=== PATIENT | female | born 1950 | race Caucasian/White ===

== ENCOUNTER 2018-01-11 13:40 | Outpatient (REF) | payer MEDICARE, SELFPAY ==
[2018-01-13 11:39] LABS: Hepatitis C Ab w Rflx HCV PCR Negative (NEGAT)
== END 2018-01-11 14:00 ==
LOC: NCHCN 13:40
PROVIDERS: PCP Nurse Practitioner Family; Visit Provider Nurse Practitioner Family
DX: E78.5 Hyperlipidemia, unspecified (principal); M85.88 Other specified disorders of bone density and structure, other site; Z11.59 Encounter for screening for other viral diseases; J98.4 Other disorders of lung
CPT/HCPCS: 86803

== ENCOUNTER 2018-01-21 00:28 | Outpatient (CLI) | payer MEDICARE, BC, SELFPAY ==
--- NOTE | 2018-01-21 09:40 | DI.MAMMO_ITS ---
SYMPTOM/DIAGNOSIS: SCREENING, FAMILY H/O BREAST CA, Z80.3 MAMMOGRAMS: Mammograms were interpreted according to the usual protocol including computer analysis with CAD system, tomosynthesis and C view imaging. The breasts are of moderate density with fairly symmetrical distribution of fibroglandular tissue. No dominant mass or clumped microcalcification is identified in either breast. The current examination is compared with previous examinations including 12/2016 and there has been no gross interval change in appearance in comparison with the previous studies. CONCLUSION: No specific evidence of malignancy at this time. Routine screening examinations are suggested at yearly intervals due to the family history of breast carcinoma. Category 1, breast density, Category B. MQSA ASSESSMENT OF FINDINGS: Negative. Category 1. Patient will receive a letter notifying them of these results. BI-RADS category B. There are scattered areas of fibroglandular density.
== END 2018-01-21 00:48 ==
PROVIDERS: PCP Nurse Practitioner Family; Visit Provider Nurse Practitioner Family
DX: Z12.31 Encounter for screening mammogram for malignant neoplasm of breast (principal); Z80.3 Family history of malignant neoplasm of breast
CPT/HCPCS: 77063; 77067

== ENCOUNTER 2018-08-19 11:57 | Outpatient (REF) | payer MEDICARE, BC, SELFPAY ==
[2018-08-20 11:45] LABS: Campylobacter PCR SEE COMMENTS; Salmonella PCR SEE COMMENTS; Shiga Toxin PCR SEE COMMENTS; Shigella/Enteroinvasive Ecoli SEE COMMENTS
== END 2018-08-19 12:17 ==
LOC: NCHCN 11:57
PROVIDERS: PCP Nurse Practitioner Family; Visit Provider Nurse Practitioner Family
DX: R19.7 Diarrhea, unspecified (principal); E78.5 Hyperlipidemia, unspecified; K44.9 Diaphragmatic hernia without obstruction or gangrene; J98.4 Other disorders of lung; K30 Functional dyspepsia
CPT/HCPCS: 87505; 87177; 87230; 87324

== ENCOUNTER 2019-09-15 03:11 | Outpatient (CLI) | payer MEDICARE, BC, SELFPAY ==
--- NOTE | 2019-09-15 13:33 | DI.MAMMO_ITS ---
EXAM: MAMMO SCREENING CLINICAL HISTORY: SCREENING, Z12.31 TECHNIQUE: Mammograms were interpreted according to the usual protocol including computer analysis w [employer] CAD system, tomosynthesis and C-view imaging. COMPARISON: 2010 through 2017 FINDINGS: The breasts are composed of scattered fibroglandular densities, Breast Density category B. No suspicious masses or suspicious microcalcifications are seen. No skin thickening or abnormal axillary lymph nodes are seen. There has been no significant change from prior exams. IMPRESSION: BI-RADS Category 1 - Negative Yearly screening mammography is recommended. Breast Density Category B, scattered fibroglandular densities.
--- NOTE | 2019-09-15 13:50 | DI.DEXA_ITS ---
EXAM: XR DEXA BONE DENSITY W/WO RAVIN CLINICAL HISTORY: OSTEOPENIA WITH HIGH FRACTURE RISK, M85.99 TECHNIQUE: Holoroomlinx Horizon C densitometer. COMPARISON: DX DEXA BONE DENSITY WITH RAVIN from 12/04/2015 FINDINGS: Lateral view of the thoracic and lumbar spine shows no evidence of compression fractures. Scoliosis is noted. The bone mineral density measurements of lumbar spine correspond to a total T-score of -2.4, in the o steopenic range. There has been 8.7 percent decrease in spine bone density when compared with 2016. The bone mineral density measurements of the left hip correspond to a total T-score -0.4 and a femora l neck T-score of -0.2, in the normal range. This is not significantly changed. The left forearm bone mineral density measurements correspond to a T-score of the distal 3rd of -1.7. There has been a 3.7 percent decrease in forearm bone density when compared with 2016. IMPRESSION: Normal bone mineral density of the left hip. Osteopenia of the lumbar spine and forearm.
== END 2019-09-15 03:31 ==
PROVIDERS: PCP Nurse Practitioner Family; Visit Provider Nurse Practitioner Family
DX: Z12.31 Encounter for screening mammogram for malignant neoplasm of breast (principal); M85.88 Other specified disorders of bone density and structure, other site
CPT/HCPCS: 77063; 77067; 77080

== ENCOUNTER → 2019-09-23 07:35 | Outpatient (BNVA) | payer MEDICARE, BC, SELFPAY | PROVIDERS: PCP Nurse Practitioner Family; Referring Provider Nurse Practitioner Family; Visit Provider Surgery | DX: Z12.11 Encounter for screening for malignant neoplasm of colon (principal); Z12.12 Encounter for screening for malignant neoplasm of rectum ==

== ENCOUNTER 2019-09-27 13:00 | Outpatient (REF) | payer MEDICARE, BC, SELFPAY ==
[2019-09-27 21:58] LABS: ALT 23 U/L (14-59); AST 12 U/L (15-37); Albumin 4.2 g/dL (3.4-5.0); Alkaline Phosphatase 82 U/L (46-116); BUN 21 mg/dL (7-18); Bilirubin, Total 0.5 mg/dL (0.2-1.0); CREATININE 0.79 mg/dL (0.55-1.02); Calcium 10.1 mg/dL (8.5-10.1); Calculated LDL 190 mg/dL (<100); Chloride 101 mmol/L (98-107); Cholesterol 297 mg/dL (<200); Glucose 77 mg/dL (74-106); HDL Cholesterol 59 mg/dL (40-60); Magnesium 2.2 mg/dL (1.8-2.4); Potassium 4.6 mmol/L (3.5-5.1); Sodium 139 mmol/L (136-145); Total Protein 7.8 g/dL (6.4-8.2); Triglyceride 242 mg/dL (<150); Vitamin B12 341 pg/mL (193-986)
[2019-09-29 04:29] LABS: Vitamin D 25 Total 73.8 ng/ml (30-100)
== END 2019-09-27 13:20 ==
LOC: NCHCN 13:00
PROVIDERS: PCP Nurse Practitioner Family; Visit Provider Nurse Practitioner Family
DX: E78.5 Hyperlipidemia, unspecified (principal); M85.80 Other specified disorders of bone density and structure, unspecified site; N39.3 Stress incontinence (female) (male); K30 Functional dyspepsia; K44.9 Diaphragmatic hernia without obstruction or gangrene; M25.552 Pain in left hip; M54.5 Low back pain
CPT/HCPCS: 80053; 80061; 82306; 82607; 83735

== ENCOUNTER 2019-10-03 09:20 | Day surgery (SDC) | payer MEDICARE, BC, SELFPAY ==
--- NOTE | 2019-10-03 06:49 | COLE_ITS ---
Date of service: 10/03/19 Time of Service: 10:10 Colonoscopy Report Date of procedure: 10/03/19 Pre-op diagnosis general: Colon Cancer Screening Post-op diagnosis procedure note: other (Rectal polyp and costello-diverticulosis) Procedure: Colonoscopy with polypectomy Surgeon: Karina Joshi Anesthesia proc note operative: other (General/ ASA2 /Nika Addison, YON) Estimated blood loss (mL): 2 Pathology: other (Rectal polyp) Complications: None Disposition: same day Indications: 68 year old female here for a screening colonoscopy. She is s/p sigmoid colectomy for diverticulitis and colovesicular fistula in 2018. She was diagnosed with a HIatal Hernia and GERD last year and placed on Omeprazole. Cardiac workup was negative Recommend Colonoscopy under sedation Risks, benefits and complications have been reviewed. Complications include but are not limited to bleeding, pain, perforation, missed small lesion/polyp, sore throat, aspiration and adverse reaction to the medications. Questions were entertained and answered to their satisfaction and they wished to proceed. No guarantees were given or implied Prep: Miralax/Dulcolax Procedure Start Time: 10:10 Procedure End Time: 10:23 Retraction Time: 10 minutes Findings: Costello-diverticulosis wide and open anastamosis One rectal polyp Procedure Description: After informed consent was obtained the patient was taken to the procedure room and placed in a left decubitous position. Monitors were applied and a time out was done. The patients name, date of , procedure, allergies to medications and metal in their body was reviewed. The patient was then sedated. Once sedated and comfortable a rectal exam was done. External exam was normal. Internal exam revealed a normal sphincter tone and no palpable masses. The scope was then introduced and retro-flexed. No internal hemorrhoids were identified. There was a internal skin tag. No polyp or masses were identified on retro-flexion. The scope was then advanced to the cecum without difficulty. The ileocecal valve and appendiceal orifice were identified. The prep was good. The scope was then slowly retracted over 10 minutes back into the rectum. Polyps were removed with cold forceps in the rectum. There was moderate costello- diverticulosis. The scope was removed and the patient was woken up and taken back to Same day surgery in stable condition. The patient tolerated the procedure well and there were no immediate complications. Follow up: The patient should follow up in 5 years unless they develop changes in bowel habits or other new gastrointestinal complaints.
--- NOTE | 2019-10-03 06:50 | PDOC.DSDIS_ITS ---
Discharge Plan Disposition Patient Disposition: HOME Condition: Good Discharge Details Reason For Visit: Colon cancer screening Attending Provider: Karina Joshi Primary Care Provider: Alexandra Queen Home Meds and New Rx's Prescriptions: Continued turmeric 400 mg capsule 400 mg PO DAILY RF: 0 cholecalciferol (vitamin D3) 2,000 UNIT tablet 2,000 unit PO DAILY RF: 0 Probiotic 1 EACH capsule 1 ea PO DAILY RF: 0 omeprazole 20 mg capsule,delayed release(DR/EC) 20 mg PO DAILY RF: 0 acetaminophen [Tylenol] 325 MG tablet 650 mg PO Q6H PRN PRNRF: 0 ibuprofen 200 MG tablet 600 mg PO Q6H PRN PRN (Reason: Abdominal Pain) Qty: 30 RF: 0 Discontinued bisacodyl [Dulcolax (bisacodyl)] 5 mg tablet,delayed release (DR/EC) 5 mg PO ONCE Qty: 4 RF: 0 polyethylene glycol 3350 17 gram powder in packet 255 g PO DAILY Qty: 15 RF: 0 Discharge Instructions Instructions: Diverticulosis (DC) Additional Instructions: Findings: Diverticulosis Rectal polyp Follow up: 5 years Please call if you develop: fevers >101.5 Nausea or Vomiting Abdominal pain that is not transient DAY SURGERY UNIT POST ENDOSCOPY INSTRUCTIONS 1. Because there will be medication in your system for the next 24 hours, you may feel a little sleepy. Your coordination will be affected. Therefore: a. Do not drive or operate dangerous equipment for 24 hours. b. Do not drink alcohol beverages for 24 hours (not even beer). c. Plan to go home and rest for the day. 2. Generally there are no restrictions on your activity after a day or so has gone by, but you may feel a bit fatigued for a few days. 3 After you arrive home you may have a light meal and return to a normal diet as you can tolerate it without feeling sick to your stomach. 4. After surgery, you may feel pain or discomfort. This should be only t ransient, but if it persists please contact your doctor. 5. If there are any questions regarding the findings of your procedure, please feel free to contact your doctor. 6. If you are unable to contact your doctor with a problem, contact the hospital at [phone]. 7. Continue all your regular medications unless directed otherwise. I understand the above instructions and have no questions. Signature of Patient or Responsible Adult Escort Date/Time Name of Responsible Adult Escort Signature of Nurse Date/Time Activity:: Activity as Tolerated Diet:: High Fiber diet Discharge Orders Discharge Orders: Discharge Order (Routine); Ordered 10/03/19 Ordered By: Karina Joshi
[2019-10-03 09:37] VITALS: BP 129/88; PULSE 62; RESP 18; TEMP 36.1; O2SAT 97
[2019-10-03] MEDS: Lactated Ringers 1,000 ML 80 ML IV (09:45)
--- NOTE | 2019-10-03 10:20 | BOWEL_PTH ---
PATIENT: LUCERO CANO LOC: [facility] U#:[id number] AGE/SX: 68/F ROOM: RE10/03/[address]: Karina Joshi MD : [id number] BED: DIS: 10/03/2019 SPEC #: [id number] RECD: 10/03/19 12:10 STATUS: CEDRIC REQ #: [id number] MARY: 10/03/19 10:[address]: Karina Joshi DEPT: Surgical Specimen RECD BY: Molly Linda ENTERED: 10/03/19 12:11 SP TYPE: Bowel OTHR DR: Alexandra Queen Tissues: 1 - BIOPSY BOWEL Procedures: GROSS AND MICRO LEVEL 4 Comments: [id number]
[2019-10-03 10:52] VITALS: BP 110/76; PULSE 62; RESP 17; TEMP 36; O2SAT 96
== END 2019-10-03 11:20 | disposition home or self-care (01) ==
LOC: SUR 09:20
PROVIDERS: PCP Nurse Practitioner Family; Visit Provider Surgery
PROC: 0DJD8ZZ Inspection of Lower Intestinal Tract, Via Natural or Artificial Opening Endoscopic (ICD-10-PCS; CPT 45378; principal; 2019-10-03 10:30)
DX: Z12.11 Encounter for screening for malignant neoplasm of colon (principal); Z90.49 Acquired absence of other specified parts of digestive tract; Z87.19 Personal history of other diseases of the digestive system; K62.1 Rectal polyp
CPT/HCPCS: 45380; 88305

== ENCOUNTER → 2019-10-21 11:01 | Outpatient (BNVA) | payer MEDICARE, BC, SELFPAY | PROVIDERS: PCP Nurse Practitioner Family; Referring Provider Nurse Practitioner Family; Visit Provider Surgery | DX: K43.2 Incisional hernia without obstruction or gangrene (principal); Z01.818 Encounter for other preprocedural examination | CPT/HCPCS: 99213 ==

== ENCOUNTER 2019-10-22 07:28 | Outpatient (CLI) | payer MEDICARE, BC, SELFPAY ==
[2019-10-25 23:46] LABS: COVID-19 RT-PCR UVMMC Result Negative (Negative)
== END 2019-10-22 07:48 ==
PROVIDERS: PCP Nurse Practitioner Family; Visit Provider Surgery
DX: Z01.818 Encounter for other preprocedural examination (principal)
CPT/HCPCS: U0003

== ENCOUNTER 2019-10-26 06:20 | Day surgery (SDC) | payer MEDICARE, BC, SELFPAY ==
[2019-10-26] VITALS (9 sets, daily range): BP systolic 113–143; BP diastolic 70–87; PULSE 59–70; RESP 15–26; TEMP 36.3–36.6; O2SAT 94–99
--- NOTE | 2019-10-26 06:23 | W.PM.OP ---
Date of service: 10/26/19 Time of Service: 10:15 Operative Note Operative Note DATE OF PROCEDURE: 10/26/19 PRE-OP DIAGNOSIS: Incisional hernia POST-OP DIAGNOSIS: same PROCEDURE: Laparoscopic/open incisional hernia repair with mesh SURGEON: Karina Joshi SPRING COILING MACHINE SETTER: Deborah Maravilla ANESTHESIA: GETA and regional (Exparel/bupivocaine block) PATHOLOGY: none sent COMPLICATIONS: None Patient was transported to: PACU Patient's condition: stable Implants: Ventralight ST Mesh with ECHO positioning system REF [id number] EXP 2021-03-26 Indications: [place] is a pleasant 69-year-old female who unfortunately developed a small incisional hernia around the umbilicus. I cannot feel any other hernias along her midline incision. My recommendation is to try to fix this laparoscopically just so I can make sure that there are not other small hernias along the midline that I just cannot feel. I discussed with her doing a laparoscopic hernia repair possible open or possibly a combination of the 2. This will depend on how many adhesions she has. Findings: Omentum and large bowel was adhered along the entire midline incision Procedure Description: After informed consent was obtained the patient was taken to the operating room placed in the supine position, SCDs were applied, as well as monitors. A timeout was done. The patient was then placed under general anesthesia and intubated without any difficulty. Anesthesia did an US guided Bilateral Rectus nerve bloc. Please see their separate dictation. Next a Gonzalez catheter was placed in a standard surgical fashion. At this point the abdomen was prepped and draped in a sterile surgical fashion with chlorhexidine. A second timeout was done and the patient's name, date of , operation to be performed, DVT prophylaxisand antibiotic given were reviewed. Fire risk was assessed. 1% Percent lidocaine was injected into the dermis in the left upper quadrant. A small 5 mm incision was made with an 11 blade. The skin was grasped with penetrating towel clamps on either side of the incision and then using a Visiport a 5 mm port was placed under direct visualization into the abdomen. The abdomen was insufflated and adhesions of omentum up to the abdominal wall along the midline incision were identified. There was also adhesions of large bowel and small bowel to the abdominal wall the entire length of the incision. The craig was removed and local was injected along the old midline scar. An incision was amde with a 10 blade. Dissection was taken down with cautery through the subcutaneous tissue down to the hernia sac. The hernia sac was opened carefully. I was then able to placed my finger into the abdominal cavity and slowely open the fascia, making sure not to injury the adhered bowel. The fascia was grasped with cocker clamps. The omentum and bowel was then carefully dissected away from the peritoneum using both blunt and sharp dissection with metzenbaum scissors. Small amount of bleeding was then noted from the omentum. The bleeding was stopped using cautery and ligasure. The hernia defect was again identified. The falsiform ligament was taken down using the ligasure dissector. Next a Ventralight mesh 25 x 16 cm was opened and placed into the abdomen. The insufflation catheter was pulled through the fascia. The fascia was then closed with #1 Vicryl suture. Once the fascia was closed the subcutaneous tissue was re-approximated with 2-0 Vicryl interrupted sutures. The skin was re-approximated with skin jlil. The abdomen was then re-inflated. Local anesthetic was then injected in the Right Upper Quadrant. A small 5 mm incision was made with an 11 blade and another 5 mm port was placed under direct visualization into the abdomen. The local anesthetic was then injected in the left lower quadrant area and a 5 mm incision was made with an 11 blade. A 5 mm port was then placed under direct visualization. Local was then injected in the RLQ and a 5 mm incision was made with an 11 blade and another 5 mm port was placed under direct visualization. The balloon along the mesh was inflated. The mesh was pulled up and secured by placing a hemostat on the insuflation catheter. Using a 5 mm Tacker, the mesh was tacked up to the abdominal wall circumferentially. Once in good position the mesh balloon was deflated and removed through one of the 5 mm port sites. The omentum was inspected one more time and no bleeding was noted. Good coverage of the entire midline incision was noted with this mesh. Two of the 5 mm port were removed under direct visualization and there was no bleeding from the fascia. The last 5 mm port was removed. The skin was then closed with 4-0 Vicryl. The jill were removed and the midline incision was closed with 4-0 vicryl. The skin was cleaned and dried and mastasol and steri-strips were applied. 2x2 gauze was placed over the 5 mm incisions and secured with small tegaderms. A border dressing was applied over the midline incision. The gonzalez catheter was removed without issue. There was 100 cc of urine output. Blood loss was 100 cc. The patient was woken up, extubated and taken back to the recovery room in stable condition. There were no immediate complications. Sponge, instrument and needle counts were correct at the end of the case x2.
--- NOTE | 2019-10-26 06:24 | W.PM.DSUDISC ---
Discharge Plan Disposition Patient Disposition: HOME Condition: Improving Discharge Details Reason For Visit: HERNIA Attending Provider: Karina Joshi Primary Care Provider: Alexandra Queen Home Meds and New Rx's Prescriptions: New oxycodone 5 mg tablet 5 mg PO Q6H PRN (Reason: pain) Qty: 14 RF: 0 ibuprofen 600 mg tablet 600 mg PO Q6H PRN (Reason: pain) Qty: 30 RF: 0 Continued turmeric 400 mg capsule 400 mg PO DAILY RF: 0 atorvastatin 20 mg tablet 20 mg PO DAILY RF: 0 cholecalciferol (vitamin D3) 2,000 UNIT tablet 2,000 unit PO DAILY RF: 0 Probiotic 1 EACH capsule 1 ea PO DAILY RF: 0 omeprazole 20 mg capsule,delayed release(DR/EC) 20 mg PO DAILY RF: 0 acetaminophen [Tylenol] 325 MG tablet 650 mg PO Q6H PRN PRNRF: 0 Discontinued ibuprofen 200 MG tablet 600 mg PO Q6H PRN PRN (Reason: Abdominal Pain) Qty: 30 RF: 0 Discharge Instructions Additional Instructions: Activity at Home after surgery: 1. Make sure you walk outside at least 4 times per day 2. You should be able to climb a flight of stairs 3. No driving while in pain or taking pain medications 4. No strenuous activity or heavy lifting for 2 weeks Diet, Nutrition, & wound healin. Avoid alcohol until after you are recovered from your surgery 2. Make sure to eat plenty of lean protein (meat, fish, eggs, cottage cheese, beans) 3. Eat a variety of fruits and vegetables. Eat plenty of high fiber foods to avoid constipation. 4. Drink plenty of liquids to stay hydrated and avoid constipation Pain Medications: 1. Tylenol 650 mg every 6 hours as needed and Ibuprofen 600 mg every 6 hours as needed. may alternate between the two 2. Oxycodon 5 mg every 6 hours for severe pain For Constipation: 1. Take Milk of Magnesia or MiraLax as needed for constipation Other: 1. You may shower daily. Do not scrub the incisions 2. Do not soak the incisions for 1 week 3. You may alternate ice and heat as needed for pain and swelling Wound Care: 1. Keep the incisions clean and dry 2. May remove dressing tomorrow and leave open to air Please call our office if you develop: 1. Fevers >101.5 2. Nausea or Vomiting 3. Worsening pain 4. Redness and thick discharge from the wounds If after hours please call the Hospital at and ask to speak to the on-call surgeon Referrals: Kairna Joshi MD [ [facility] STAFF PHYSICIAN] - 11/08/19 10:30 am Activity:: no lifting >20 lb Remove Dressings/Wound Care:: 24 hours Shower/Bathe:: 24 hours Diet:: As Tolerated Discharge Orders Discharge Orders: Discharge Order (Routine); Ordered 10/26/19 Ordered By: Karina Joshi DS: Diagnosis Discharge Diagnosis (1) Incisional hernia: Status: Acute
[2019-10-26] MEDS: Lactated Ringers 1,000 ML 80 ML IV (07:04)
[2019-10-26] MEDS: Acetaminophen 500 MG TAB 1000 MG PO (07:11)
[2019-10-26] MEDS: Celecoxib 200 MG CAP PO (07:11)
[2019-10-26] MEDS: AMPICILLIN/SULBACTAM 3 GM in Normal Saline 100 ML IVPB (07:24)
[2019-10-26] MEDS: Lidocaine 1% Pres-Free 5 ML VIAL (07:58)
[2019-10-26] MEDS: Lidocaine 1% Multi-Dose 50 ML VIAL (08:20)
[2019-10-26] MEDS: fentaNYL 100 MCG/2 ML VIAL IVP (10:35)
[2019-10-26] MEDS: oxyCODONE 5 MG TAB PO (11:21)
== END 2019-10-26 12:55 | disposition home or self-care (01) ==
PROVIDERS: PCP Nurse Practitioner Family; Visit Provider Surgery
PROC: 0WQF4ZZ Repair Abdominal Wall, Percutaneous Endoscopic Approach (ICD-10-PCS; CPT 49320; principal; 2019-10-26 07:30)
DX: K43.2 Incisional hernia without obstruction or gangrene (principal); K66.0 Peritoneal adhesions (postprocedural) (postinfection); G89.18 Other acute postprocedural pain; K21.9 Gastro-esophageal reflux disease without esophagitis
CPT/HCPCS: 49320; 49560; 49568; C1781; J0295; J1100; J1885; J2001; J2250; J2405; J2704; J3010

== ENCOUNTER → 2019-11-08 10:30 | Outpatient (BNVA) | payer MEDICARE, BC, SELFPAY | PROVIDERS: PCP Nurse Practitioner Family; Referring Provider Nurse Practitioner Family; Visit Provider Surgery | DX: Z48.815 Encounter for surgical aftercare following surgery on the digestive system (principal) ==

== ENCOUNTER 2019-11-18 18:41 | Outpatient (REF) | payer MEDICARE, BC, SELFPAY ==
[2019-11-18 23:36] LABS: ALT 21 U/L (14-59); AST 19 U/L (15-37); Anion Gap 11.9 mmol/L (3-11); BUN 14 mg/dL (7-18); Bilirubin, Total 0.7 mg/dL (0.2-1.0); CO2 25.1 mmol/L (21.0-32.0); CREATININE 0.78 mg/dL (0.55-1.02); Calcium 9.8 mg/dL (8.5-10.1); Calculated LDL 114 mg/dL (<100); Chloride 103 mmol/L (98-107); Cholesterol 196 mg/dL (<200); Glucose 113 mg/dL (74-106); HDL Cholesterol 63 mg/dL (40-60); Potassium 3.9 mmol/L (3.5-5.1); Sodium 140 mmol/L (136-145); Total Protein 7.5 g/dL (6.4-8.2); Triglyceride 98 mg/dL (<150)
[2019-11-19 00:06] LABS: Alkaline Phosphatase 123 U/L (46-116)
== END 2019-11-18 19:01 ==
LOC: NCHCN 18:41
PROVIDERS: PCP Nurse Practitioner Family; Visit Provider Nurse Practitioner Family
DX: E78.5 Hyperlipidemia, unspecified (principal); L98.9 Disorder of the skin and subcutaneous tissue, unspecified
CPT/HCPCS: 80053; 80061

== ENCOUNTER 2019-11-30 04:35 | Outpatient (CLI) | payer MEDICARE, BC, SELFPAY ==
--- NOTE | 2019-11-30 09:20 | DI.CTLCSR_ITS ---
EXAM: CT CHEST LUNG CANCER SCREEN CLINICAL HISTORY: HX OF TOBACCO ABUSE, Z87.891 TECHNIQUE: Imaging Protocol: Axial computed tomography images with coronal and sagittal reformatted images were created and reviewed COMPARISON: CT CTTHORAX- from 11/26/2018 FINDINGS: Tracheobronchial tree: Patent where visualized. Mediastinum and Xi: No dominant adenopathy or fluid collection. There is a large hiatal hernia. Pulmonary parenchyma: No consolidation or dominant measurable mass. Biapical scarring. There is a ca lcified granuloma in the right upper lobe. Lung Nodules: None. Pleura: No effusion or pneumothorax. Heart: The heart is not dilated. Mild coronary artery calcification. No significant pericardial effu alfonso. Aorta: Thoracic aorta non-dilated.Atherosclerosis. Upper abdomen: Unremarkable. Bones: Degenerative changes. Old left rib fractures. Soft Tissues: Unremarkable. IMPRESSION: No pulmonary nodules. Lung RADS Cat 1 - Negative: No nodules and definitely benign nodules Lung-RADS 1.0 CATEGORIES: Category 0 - Prior chest CT exam(s) being located for comparison. Category 1 - Annual screening in 12 months. No nodules or definitely benign nodules. Category 2 - Annual screening in 12 months. Benign appearance. Nodules with low likelihood of becomin g active cancer. Category 3 - 6-month follow-up. Probably benign. Short-term follow-up suggested. Nodules with low lik elihood of becoming active cancer. Category 4A - 3-month follow-up and CT/PET if >8 mm in size. Suspicious finding. Findings which requi re additional testing. Category 4B - Findings which require additional testing and tissue sampling. Suspicious finding. C Added to Any of the Above - History of prior lung cancer screening. S Added to Any of the Above - Significant unexpected other finding. RADIATION DOSE DELIVERED: 103.55mGy.cm Total DLP DATA REPOSITORY: All CT scans at this facility are submitted to the National Radiology Data Registry (NRDR) Dose Index Registry (DIR) with the [employer] ([employer]). RADIATION OPTIMIZATION: All CT scans at this facility use at least one of these dose optimization te chniques: automated exposure control; mA and/or kV adjustment per patient size (includes targeted exa ms where dose is matched to clinical indication); or iterative reconstruction.
== END 2019-11-30 04:55 ==
PROVIDERS: PCP Nurse Practitioner Family; Visit Provider Nurse Practitioner Family
DX: Z87.891 Personal history of nicotine dependence (principal)
CPT/HCPCS: G0297

== ENCOUNTER 2020-10-25 14:59 | Outpatient (REF) | payer MEDICARE, BC, SELFPAY ==
[2020-10-25 21:59] LABS: ALT 14 U/L (14-59); AST 17 U/L (15-37); Albumin 4.4 g/dL (3.4-5.0); Alkaline Phosphatase 78 U/L (46-116); Anion Gap 7.3 mmol/L (3-11); BUN 15 mg/dL (7-18); Bilirubin, Total 0.5 mg/dL (0.2-1.0); CO2 31.7 mmol/L (21.0-32.0); CREATININE 0.8 mg/dL (0.55-1.02); Calcium 10.1 mg/dL (8.5-10.1); Calculated LDL 189 mg/dL (<100); Chloride 103 mmol/L (98-107); Cholesterol 281 mg/dL (<200); Glucose 97 mg/dL (74-106); HDL Cholesterol 72 mg/dL (40-60); Potassium 4.8 mmol/L (3.5-5.1); Sodium 142 mmol/L (136-145); Total Protein 7.8 g/dL (6.4-8.2); Triglyceride 100 mg/dL (<150); Vitamin B12 384 pg/mL (193-986)
== END 2020-10-25 15:00 | disposition home or self-care (01) ==
LOC: NCHCN 14:59
PROVIDERS: PCP Nurse Practitioner Family; Visit Provider Nurse Practitioner Family
DX: M25.552 Pain in left hip (principal); M54.5 Low back pain; E78.5 Hyperlipidemia, unspecified; K44.9 Diaphragmatic hernia without obstruction or gangrene; K30 Functional dyspepsia; J98.4 Other disorders of lung
CPT/HCPCS: 80053; 80061; 82607; 83735